=== PATIENT | male | born 1985 | race African-American/Black ===

== ENCOUNTER 2016-09-30 06:11 | Emergency (ER) | payer OTHER ==
[2016-09-30 04:49] LABS: INFLUENZA A NEG (NEG)
[2016-09-30 04:50] LABS: INFLUENZA B NEG (NEG)
[~2016-09-30 06:11] MED LIST: KETOPROFEN PO; ORUDIS75 M1 PO; ZITHROMAX PO
== END 2016-09-30 06:46 | disposition home or self-care (01) ==
LOC: CED 06:11
PROVIDERS: Emergency Medicine
DX: J06.9 Acute upper respiratory infection, unspecified (principal); Z87.891 Personal history of nicotine dependence; Z88.0 Allergy status to penicillin
CPT/HCPCS: 87804; 96361; 96374; 96375; 99284; J1885; J2405